=== PATIENT | female | born 1980 | race Caucasian/White ===

== ENCOUNTER 2024-10-09 17:07 | Emergency (ER) | payer MEDICAID ==
[2024-10-09 17:27] VITALS: BP 147/96; PULSE 111
== END 2024-10-09 18:29 | disposition home or self-care (01) ==
LOC: FB.ED 17:07
DX: S50.11XA Contusion of right forearm, initial encounter (principal); S50.12XA Contusion of left forearm, initial encounter; S40.012A Contusion of left shoulder, initial encounter; S40.011A Contusion of right shoulder, initial encounter; F17.290 Nicotine dependence, other tobacco product, uncomplicated; Z88.8 Allergy status to other drugs, medicaments and biological substances; Z91.030 Bee allergy status; Y04.8XXA Assault by other bodily force, initial encounter
CPT/HCPCS: 73090-RT; 99284

== ENCOUNTER 2025-02-10 13:45 | Emergency (ER) | payer MEDICAID ==
[2025-02-10 16:55] VITALS: BP 106/80; PULSE 88
== END 2025-02-10 15:08 | disposition home or self-care (01) ==
LOC: FB.ED 13:45
DX: K27.9 Peptic ulcer, site unspecified, unspecified as acute or chronic, without hemorrhage or perforation (principal); J45.909 Unspecified asthma, uncomplicated; F17.290 Nicotine dependence, other tobacco product, uncomplicated; Z91.030 Bee allergy status; Z88.8 Allergy status to other drugs, medicaments and biological substances; Z79.899 Other long term (current) drug therapy
CPT/HCPCS: 99283